=== PATIENT | female | born 1980 | race Caucasian/White ===

== ENCOUNTER 2022-12-01 22:33 | Emergency (ER) | payer OTHER ==
[~2022-12-01] VITALS: Ht 160 cm; Wt 70.8 kg
--- NOTE | 2022-12-01 23:49 | NUR ---
RAPID FLU SWAB DONE AND SENT TO LAB
--- NOTE | 2022-12-02 01:16 | NUR ---
Patient discharged to home in stable condition. Written and verbal after care instructions given. Patient verbalizes understanding of instruction.
[2022-12-02 01:17] VITALS: BP 129/82
== END 2022-12-02 01:18 | disposition home or self-care (01) ==
LOC: ER 22:43
DX: J06.9 Acute upper respiratory infection, unspecified (principal)